=== PATIENT | male | born 1950 | race Two or more races ===

== ENCOUNTER 2017-02-17 09:32 | Inpatient (IN) | payer OTHER ==
[~2017-02-17] VITALS: Ht 185.4 cm; Wt 79.8 kg
[~2017-02-17 09:32] MED LIST: FURO20TA6 PO; LEVO175T9 PO; LEVO500T89 PO; LISI2.5T2 PO; METO50TA9 PO; PANT40TA25 PO; POTA20TA12 PO; RIVA20TA PO; SELE200C PO
[2017-02-17] MEDS ORDERED: DILTIAZEM HCL 125 MG/25 ML VIAL IV ONE (10:00)
[2017-02-17 10:18] LABS: BASOPHILS % (AUTO) 0.5 % (0.0-5.0); EOSINOPHILS % (AUTO) 1.4 % (0.0-8.0); HEMATOCRIT 45.2 % (42-54); LYMPHOCYTES % (AUTO) 13.7 % (21.0-51.0); MEAN CORPUSCULAR HEMOGLOBIN 30.4 pg (27.0-33.0); MEAN CORPUSCULAR HGB CONC 33.4 g/dL (32.0-36.0); MONOCYTES % (AUTO) 8.4 % (3.0-13.0); PLATELET COUNT (AUTO) 223 K/uL (130-400); RED BLOOD CELL COUNT(AUTO) 4.97 MIL/uL (4.50-6.20); RED CELL DISTRIBUTION WIDTH 14.5 % (11.0-15.5); WHITE BLOOD COUNT (AUTO) 10.3 K/uL (4.8-10.8)
[2017-02-17 10:26] LABS: POTASSIUM 3.9 mmol/L (3.5-5.1)
[2017-02-17 10:27] LABS: APPEARANCE,URINE Clear (CLEAR); BILIRUBIN,URINE Negative (NEGATIVE); COLOR,URINE Dark Yellow (YELLOW); GLUCOSE, URINE (UA) Negative (NEGATIVE); KETONES,URINE Trace mg/dL (NEGATIVE); LEUKOCYTE ESTERASE ,URINE Negative (NEGATIVE); NITRATE,URINE Negative (NEGATIVE); OCCULT BLOOD,URINE Negative (NEGATIVE); PH,URINE 5.5 (5.0-8.0); PROTEIN,URINE POS 1+ (NEGATIVE)
[2017-02-17 10:29] LABS: INR 1.11 (0.85-1.15); PARTIAL THROMBOPLASTIN TIME 25.8 SEC (26.3-35.5); PROTHROMBIN TIME 11.6 SEC (9.6-11.6)
[2017-02-17 10:40] LABS: ALBUMIN 3.3 g/dL (3.5-5.0); BILIRUBIN,TOTAL 0.8 mg/dL (0.2-1.0); CREATINE KINASE MB 1.9 ng/mL (0.5-3.6); CREATININE 1.6 mg/dL (0.5-1.5)
[2017-02-17 10:45] LABS: BACTERIA,URINE Rare /HPF (None Seen); RBC,URINE 0-1 /HPF (0-1); SQUAMOUS EPITHELIAL CELL,UR Rare /LPF (0-2); WBC,URINE 0-1 /HPF (0-1)
[2017-02-17 11:20] LABS: B-TYPE NATRIURETIC PEPTIDE 948 pg/mL (0-100)
[2017-02-17] MEDS ORDERED: FUROSEMIDE 10 MG/ML 2ML VIAL ONE (11:38)
[2017-02-17] MEDS ORDERED: GLUCAGON 1MG KIT 1 MG ML IM PRN (14:00)
[2017-02-17] MEDS ORDERED: DEXTROSE 50%-WATER 50 ML DISP.SYRIN IV PRN (14:00)
[2017-02-17 14:02] VITALS: BP 134/90
[2017-02-17] MEDS ORDERED: POTASSIUM CHLORIDE 20 MEQ ERTAB PO PRN (14:30)
[2017-02-17] MEDS ORDERED: POTASSIUM CHLORIDE 20MEQ/100ML 100 ML IV PRN (14:30)
[2017-02-17] MEDS ORDERED: LIDOCAINE HCL-MPF 1% 2ML VIAL IVP PRN (14:30)
[2017-02-17] MEDS ORDERED: POTASSIUM CHLORIDE 10% ELIXIR 20 MEQ/15 ML UDCUP PO PRN (14:30)
[2017-02-17] MEDS ORDERED: DILTIAZEM 125MG+100 ML NS 125 ML IV SCH (16:00)
[2017-02-17 16:18] VITALS: BP 124/91
[2017-02-17] MEDS: INSULIN HUMULIN R 100 UNIT/ML 3ML SQ SCH ×2 (16:30→20:52)
[2017-02-17] MEDS: FUROSEMIDE 10 MG/ML 4ML VIAL IV SCH (17:55)
[2017-02-17] MEDS: NITROGLYCERIN 1GM/1 INCH PACKET TD SCH (17:56)
[2017-02-17 19:08] VITALS: BP 107/70
[2017-02-17 23:18] VITALS: BP 105/77
[2017-02-18] MEDS: NITROGLYCERIN 1GM/1 INCH PACKET TD SCH ×5 (01:14→23:41)
[2017-02-18 04:33] VITALS: BP 130/83
[2017-02-18 04:42] LABS: BASOPHILS % (AUTO) 0.7 % (0.0-5.0); EOSINOPHILS % (AUTO) 6.4 % (0.0-8.0); HEMATOCRIT 41.6 % (42-54); LYMPHOCYTES % (AUTO) 20.5 % (21.0-51.0); MEAN CORPUSCULAR HEMOGLOBIN 30.3 pg (27.0-33.0); MEAN CORPUSCULAR HGB CONC 33.8 g/dL (32.0-36.0); MEAN CORPUSCULAR VOLUME 89.7 fL (79-99); MONOCYTES % (AUTO) 9.7 % (3.0-13.0); NEUTROPHILS % (AUTO) 62.7 % (40.0-77.0); PLATELET COUNT (AUTO) 194 K/uL (130-400); RED BLOOD CELL COUNT(AUTO) 4.64 MIL/uL (4.50-6.20); RED CELL DISTRIBUTION WIDTH 14.1 % (11.0-15.5); WHITE BLOOD COUNT (AUTO) 9.3 K/uL (4.8-10.8)
[2017-02-18] MEDS: FUROSEMIDE 10 MG/ML 4ML VIAL IV SCH ×2 (04:58→17:17)
[2017-02-18 05:37] LABS: CREATININE 1.6 mg/dL (0.5-1.5); POTASSIUM 3.9 mmol/L (3.5-5.1)
[2017-02-18] MEDS: INSULIN HUMULIN R 100 UNIT/ML 3ML SQ SCH ×4 (06:27→21:00)
[2017-02-18 07:23] VITALS: BP 126/98
[2017-02-18] MEDS ORDERED: DIGO125T17 PO (07:55)
[2017-02-18] MEDS ORDERED: LEVO200T10 PO (07:55)
[2017-02-18] MEDS ORDERED: SIMV40TA5 PO (07:55)
[2017-02-18] MEDS ORDERED: ENAL10TA PO (07:55)
[2017-02-18 11:06] VITALS: BP 133/76
[2017-02-18 16:08] VITALS: BP 121/77
[2017-02-18] MEDS ORDERED: GUAIFENESIN-CODEINE 5 ML SYRUP PO PRN ×3 (18:45→18:51)
[2017-02-18 20:03] LABS: CREATINE KINASE MB 1.1 ng/mL (0.5-3.6); CREATINE KINASE, TOTAL 92 U/L (21-232); MYOGLOBIN 79 ng/mL (10-92); TROPONIN I < 0.04 ng/mL (0.00-0.06)
[2017-02-18 20:13] VITALS: BP 112/78
[2017-02-18] MEDS ORDERED: ATORVASTATIN CALCIUM 20 MG TABLET PO SCH (21:00)
[2017-02-18] MEDS: ENALAPRIL MALEATE 10 MG TABLET PO SCH (21:11)
[2017-02-18 23:35] VITALS: BP 157/76
[2017-02-19 01:49] LABS: CREATINE KINASE MB 0.7 ng/mL (0.5-3.6); CREATINE KINASE, TOTAL 66 U/L (21-232); MYOGLOBIN 68 ng/mL (10-92); TROPONIN I < 0.04 ng/mL (0.00-0.06)
[2017-02-19 03:46] VITALS: BP 109/62
[2017-02-19] MEDS: INSULIN HUMULIN R 100 UNIT/ML 3ML SQ SCH (05:49)
[2017-02-19] MEDS: NITROGLYCERIN 1GM/1 INCH PACKET TD SCH (05:52)
[2017-02-19] MEDS ORDERED: LEVOTHYROXINE 100 MCG TABLET PO SCH (06:30)
[2017-02-19 07:21] VITALS: BP 125/94
[2017-02-19] MEDS: ENALAPRIL MALEATE 10 MG TABLET PO SCH (08:34)
[2017-02-19] MEDS ORDERED: RIVAROXABAN 20 MG TABLET PO SCH (09:00)
[2017-02-19] MEDS ORDERED: FUROSEMIDE 20 MG TABLET PO SCH (09:00)
[2017-02-19] MEDS ORDERED: DIGOXIN 125 MCG TABLET PO SCH (09:00)
[2017-02-19] MEDS ORDERED: POTASSIUM CHLORIDE 20 MEQ ERTAB PO SCH (09:00)
[2017-02-19] MEDS ORDERED: PANTOPRAZOLE SODIUM 40 MG TABLET.DR PO SCH (09:00)
[2017-02-19 11:10] VITALS: BP 102/57
== END 2017-02-19 15:42 | disposition home or self-care (01) | DRG 308 ==
LOC: EDH 09:32 → 2DH 12:50
PROVIDERS: ADMIT Family Medicine; ATTEND Family Medicine
DX: I48.92 Unspecified atrial flutter (principal); I50.41 Acute combined systolic (congestive) and diastolic (congestive) heart failure; Z95.0 Presence of cardiac pacemaker
CPT/HCPCS: 36415; 71010; 80048; 80053; 81001; 82550; 82553; 82948; 83874; 83880; 84484; 85025; 85610; 85730; 87040; 87088; 93005; 99291; J1940; J3490

== ENCOUNTER 2017-03-30 09:00 | Emergency (ER) | payer OTHER ==
[~2017-03-30 09:00] MED LIST changes: +DIGO125T17 PO; -LEVO175T9 PO; +LEVO200T10 PO; -LEVO500T89 PO; -LISI2.5T2 PO; +SIMV40TA5 PO
[2017-03-30 09:49] LABS: BASOPHILS % (AUTO) 0.6 % (0.0-5.0); EOSINOPHILS % (AUTO) 4.5 % (0.0-8.0); HEMATOCRIT 45.4 % (42-54); LYMPHOCYTES % (AUTO) 13.8 % (21.0-51.0); MEAN CORPUSCULAR HEMOGLOBIN 30.5 pg (27.0-33.0); MEAN CORPUSCULAR HGB CONC 34.5 g/dL (32.0-36.0); MEAN CORPUSCULAR VOLUME 88.6 fL (79-99); MONOCYTES % (AUTO) 8.2 % (3.0-13.0); NEUTROPHILS % (AUTO) 72.9 % (40.0-77.0); PLATELET COUNT (AUTO) 186 K/uL (130-400); RED BLOOD CELL COUNT(AUTO) 5.13 MIL/uL (4.50-6.20); RED CELL DISTRIBUTION WIDTH 13.9 % (11.0-15.5); WHITE BLOOD COUNT (AUTO) 10.5 K/uL (4.8-10.8)
[2017-03-30 09:52] LABS: APPEARANCE,URINE Clear (CLEAR); BILIRUBIN,URINE Negative (NEGATIVE); COLOR,URINE Yellow (YELLOW); GLUCOSE, URINE (UA) Negative (NEGATIVE); KETONES,URINE Negative (NEGATIVE); LEUKOCYTE ESTERASE ,URINE Negative (NEGATIVE); NITRATE,URINE Negative (NEGATIVE); OCCULT BLOOD,URINE Negative (NEGATIVE); PROTEIN,URINE Negative (NEGATIVE); UROBILINOGEN,URINE 0.2 mg/dL (0.2-1.0)
[2017-03-30 10:07] LABS: CREATININE 1.4 mg/dL (0.5-1.5); POTASSIUM 4.9 mmol/L (3.5-5.1)
[2017-03-30 10:12] LABS: ALBUMIN 3.9 g/dL (3.5-5.0); BILIRUBIN,TOTAL 0.5 mg/dL (0.2-1.0)
== END 2017-03-30 14:06 | disposition home or self-care (01) ==
LOC: EDH 09:00
DX: S29.012A Strain of muscle and tendon of back wall of thorax, initial encounter (principal); Z95.0 Presence of cardiac pacemaker; Z87.442 Personal history of urinary calculi; X58.XXXA Exposure to other specified factors, initial encounter; Y93.89 Activity, other specified; Y92.89 Other specified places as the place of occurrence of the external cause; Y99.8 Other external cause status
CPT/HCPCS: 36415; 74176; 80053; 81003; 85025

== ENCOUNTER → 2017-11-11 | Outpatient (CLI) | payer OTHER ==
[~2017-11-11] MED LIST changes: -FURO20TA6 PO; -PANT40TA25 PO; -SELE200C PO
== END | disposition home or self-care (01) ==
LOC: OIH 09:53
PROVIDERS: ATTEND Family Medicine
DX: M47.895 Other spondylosis, thoracolumbar region (principal); I51.7 Cardiomegaly
CPT/HCPCS: 71046

== ENCOUNTER → 2018-02-06 | Outpatient (CLI) | payer OTHER ==
[~2018-02-06] MED LIST changes: +METO-409 PO; -METO50TA9 PO
== END | disposition home or self-care (01) ==
LOC: OIH 12:58
PROVIDERS: ATTEND Family Medicine
DX: I51.7 Cardiomegaly (principal); Z95.0 Presence of cardiac pacemaker
CPT/HCPCS: 71046

== ENCOUNTER 2018-06-06 09:50 | Emergency (ER) | payer MEDICARE, OTHER ==
[~2018-06-06 09:50] MED LIST changes: -METO-409 PO; -POTA20TA12 PO
[2018-06-06 10:42] LABS: EOSINOPHILS % (AUTO) 3.8 % (0.0-8.0); LYMPHOCYTES % (AUTO) 18.2 % (21.0-51.0); MEAN CORPUSCULAR HEMOGLOBIN 30.9 pg (27.0-33.0); MEAN CORPUSCULAR HGB CONC 33.1 g/dL (32.0-36.0); MEAN CORPUSCULAR VOLUME 93.2 fL (79-99); MONOCYTES % (AUTO) 6.9 % (3.0-13.0); NEUTROPHILS % (AUTO) 70.1 % (40.0-77.0); PLATELET COUNT (AUTO) 196 K/uL (130-400); RED BLOOD CELL COUNT(AUTO) 4.83 MIL/uL (4.50-6.20); RED CELL DISTRIBUTION WIDTH 14.4 % (11.0-15.5)
[2018-06-06 10:52] LABS: CREATININE 1.6 mg/dL (0.5-1.5); POTASSIUM 4.9 mmol/L (3.5-5.1)
== END 2018-06-06 11:50 | disposition home or self-care (01) ==
LOC: EDH 09:50
DX: J20.9 Acute bronchitis, unspecified (principal); E07.9 Disorder of thyroid, unspecified; Z95.0 Presence of cardiac pacemaker
CPT/HCPCS: 36415; 71046; 80048; 84484; 85025; 93005